=== PATIENT | male | born 1995 | race Caucasian/White ===

== ENCOUNTER 2018-01-10 23:14 | Emergency (ER) | payer OTHER ==
[~2018-01-10] VITALS: Ht 162.6 cm; Wt 55.0 kg
[2018-01-11 00:19] VITALS: BP 149/79
== END 2018-01-11 00:21 | disposition home or self-care (01) ==
LOC: ER 23:14
DX: F10.129 Alcohol abuse with intoxication, unspecified (principal); F12.10 Cannabis abuse, uncomplicated; V87.7XXA Person injured in collision between other specified motor vehicles (traffic), initial encounter; Y93.89 Activity, other specified; Y92.410 Unspecified street and highway as the place of occurrence of the external cause; Y99.8 Other external cause status; Y90.9 Presence of alcohol in blood, level not specified
CPT/HCPCS: 99283

== ENCOUNTER 2018-12-04 01:10 | Emergency (ER) | payer MEDICAID ==
[~2018-12-04] VITALS: Ht 160 cm; Wt 6.4 kg
[2018-12-04 01:18] VITALS: BP 139/85
[2018-12-04] MEDS ORDERED: ibuprofen tablet 400 MG TABLET PO ONE (01:30)
[2018-12-04] MEDS ORDERED: cephalexin 250mg capsule PO ONE (01:30)
[2018-12-04] MEDS ORDERED: IBUP-1986 PO (01:31)
[2018-12-04] MEDS ORDERED: CEPH500C5 PO (01:31)
== END 2018-12-04 01:38 | disposition home or self-care (01) ==
LOC: ER 01:11
DX: L03.011 Cellulitis of right finger (principal); F12.90 Cannabis use, unspecified, uncomplicated; Z79.899 Other long term (current) drug therapy
CPT/HCPCS: 29130; 99283

== ENCOUNTER 2025-07-22 06:20 | Emergency (ER) | payer MEDICAID ==
[~2025-07-22] VITALS: Ht 165.1 cm; Wt 68.2 kg
[~2025-07-22 06:20] MED LIST: IBUP-1986 PO
[2025-07-22 06:24] VITALS: BP 131/67
[2025-07-22] MEDS ORDERED: NAPR-1166 PO (07:00)
[2025-07-22] MEDS ORDERED: HYDR-3965 PO (07:00)
[2025-07-22] MEDS ORDERED: ONDA-243 PO (07:00)
[2025-07-22] MEDS ORDERED: NALO4SPR BOTHNARES (07:00)
[2025-07-22] MEDS ORDERED: SULF1TAB49 PO (07:00)
[2025-07-22] MEDS ORDERED: CEPH-585 PO (07:00)
--- NOTE | 2025-07-22 07:05 | Physician Documentation ---
History of Present Illness ~ General Chief Complaint: Buttock Pain Stated Complaint: LUMP ON TAILBONE X 2 DAYS Time Seen by MD: 06:54 Primary Medical Doctor: none History of Present Illness Initial Comments This is a 29-year-old gentleman who presents for evaluation of painful area the tailbone. No obvious trigger provocation. Never experienced this in the past. Very painful to sit. Did not attempt to treat it with the anything other than ibuprofen and Tylenol without much success. Denies any other symptoms. No concern for tobacco, alcohol or illicit substances use Medication Reconciliation Allergies: Coded Allergies: No Known Allergies (Unverified , 07/22/25) Scheduled Cephalexin*Monohydrate* (Keflex*), 1 CAP PO Q6H Ibuprofen (Ibuprofen), 1 TAB PO Q8H Naloxone HCl (Narcan), 1 SPRAYS BOTHNARES ONCE Naproxen (Naproxen), 1 TAB PO Q12H Sulfamethoxazole/Trimethoprim (Bactrim Ds Tablet), 1 TAB PO Q12H Scheduled PRN Hydrocodone Bit/Acetaminophen 5/325 MG (Maybee 5/325 MG), 1 TAB PO Q6H PRN for pain ONDANSETRON ODT 4mg tablet (Ondansetron Odt), 1 TAB PO Q6H PRN PRN for nausea/vomiting Past Medical History Past Medical History: No Pertinent History Past Surgical History: noncontributory Alcohol Use: Heavy Drug Use: marijuana Lives In: Home Review of Systems ROS 10 point review of systems was performed and unless noted above in HPI is negative for acute process/complaint. Physical Exam Physical Exam Vital Signs: Temperature: 97.5, Source: Temporal, Heart Rate: 89, Respiratory Rate: 19, BP: 131/67, Pulse Oximetry: 99, Weight: 68.200 Oxygen Flow Rate: 0 Physical Exam Physical examination: GENERAL: Awake, alert, oriented, GCS 15, no apparent distress, non-toxic appe aring, answers questions, follows commands appropriately. Examined in bed 16. HEENT: Atraumatic, normocephalic, pupils equal, extraocular muscles intact Active gross movements, sclerae anicteric, mucus membranes moist, no stridor. NECK: Midline, no JVD CARDIOVASCULAR: Good skin perfusion without evidence of pallor, mottling. PULMONARY: Nonlabored, symmetric chest rise, no audible wheezing, no accessory muscle use, no respiratory distress, speaking in full sentences. GASTROINTESTINAL: Not distended. NEUROLOGIC: Lucid with normal mental status. Normal facial symmetry. Moves all extremities symmetrically and with purpose. No truncal ataxia. Speech is fluid without evidence of dysarthria or aphasia, no focal deficits appreciated. EXTREMITIES: Acute deformities Skin: warm, dry PSYCHIATRIC: Normal affect, normal insight, normal concentration. Focused exam: [Buttock exam was performed in the presence of DANTE Leung, as a patrol community service officer. The patient has 2 x 1.5 cm area of erythema in his gluteal cleft, tender to palpation reproducing chief complaint. Some calor noted. No obvious large area of fluctuance. No obvious drainable abscess. No evidence of perirectal abscess.] Progress Results/Orders Results/Orders Vital Signs 07/22/25 06:24 Temp 97.5 Pulse 89 Resp 19 B/P (MAP) 131/67 Pulse Ox 99 O2 Flow Rate 0 Medical Decision Making Additional information obtaine: N/A Findings Facility Status: [facility] H[facility], [facility] The plan was discussed with the patient, who demonstrates clear understanding of the plan and is in agreement with the plan unless otherwise noted in the chart. All questions have been answered, all concerns were addressed unless otherwise documented. I was available throughout their ED stay for frequent reassessment and question s. Differential Diagnoses (considered and possible or likely): [Buttock cellulitis, early pilonidal cyst, unlikely perianal or perirectal abscess, no evidence of gangrene/Ophelia's] ??Differential Diagnoses (considered and unlikely, not requiring evaluation currently): [No evidence of traumatic injury] [facility] Data Please see [facility] for the following: Independent Historians and external Records Review. Historian: [Patient] Independent Historians: ?[None] Medication Management: [Reviewed medication list] Social History and determinants: [Reviewed] Please see the body of the note for the following: Any independent interpretations of ECG, imaging studies. All vitals signs/haemodynamics, ordered tests were independently reviewed and interpreted by myself. Nursing triage complaint and vitals reviewed, additional nursing notes were reviewed as available and I agree unless otherwise noted or documented in contradiction in the chart Vital Signs: Independently reviewed Labs: Independently interpreted Imaging: Independently interpreted Old Medical Records: Independently reviewed, see [facility] for relevant summary and information Additionally notably showing: [Hemodynamically stable] Tests considered but not ordered include: [Hematologic workup and imaging has been considered but does not appear to be necessary given clinical nature of diagnosis] Social Determinants of Health Impact: Patient was evaluated in [facility], or [facility] [place] healthcare due to below par ratio of patient to medical providers. [] Comorbid Conditions Impacting Present Evaluation and Care/Treatment: [None reported with the patient] Management Discussions with other Healthcare Providers: [None] Treatment and Disposition Medication Management (Given or considered): []. See EMR for details Consideration for Hospitalization/Escalation/Deescalation of Care: Admission for observation has been considered, [however the patient is able to tolerate p.o., their symptoms are controlled, they are able to rely on oral medications, and their chief complaint/diagnosis can be managed on outpatient basis.] ?ED Course:?[No clinical deterioration. The area is very small, there is nothing currently to drain with the I and D.] ?Shared decision making:?[Patient is hemodynamically stable for discharge home with follow with their primary care provider. [ ] Specific and cautious return precautions provided and discussed with full understanding. Any incidental findings were also discussed and follow up recommendations given. [] All questions answered. Patient/family were able to verbalize back return precautions. Patient/family agree to plan. Copies of imaging and laboratory studies were provided.] Code status:?FULL Please see the full Electronic Medical Record for full details of nursing documentation, medications list, other records of complete past medical history and conditions, vital signs, laboratory studies, and any radiologic study interpretations by radiologists. Portions of this note were completed using [employer] dictation software and as a result there may exist minor errors in spelling. I have reviewed elements of past family and social history and agree as included in note. Differential Diagnosis See body of main note for differential diagnosis Departure Disposition: HOME / SELF CARE / HOMELESS Impression: Primary Impression: Cellulitis of buttock Condition: Stable Referrals: DEYVI SHERMAN MD 2-4 days Follow-up with the general surgeon as pilonidal cysts have high rate of recurrence and likely will require surgical removal. Prescriptions Sulfamethoxazole/Trimethoprim (Bactrim Ds Tablet) 800 Mg-160 Mg Tablet 1 TAB PO Q12H for 10 Days, #20 TAB Prov: ATILIO RIVERS DO 07/22/25 Cephalexin*Monohydrate* (Keflex*) 500 Mg Capsule 1 CAP PO Q6H for 10 Days, #40 CAP Prov: ATILIO RIVERS DO 07/22/25 ONDANSETRON ODT 4mg tablet (ONDANSETRON ODT) 4 Mg Tab.rapdis 1 TAB PO Q6H PRN PRN for nausea/vomiting for 4 Days, #16 TAB 0 Refills Prov: ATILIO RIVERS DO 07/22/25 Naloxone HCl (Narcan) 4 Mg/Actuation [place] 1 SPRAYS BOTHNARES ONCE for 14 Days, #1 EA 0 Refills Prov: ATILIO RIVERS DO 07/22/25 Hydrocodone Bit/Acetaminophen 5/325 MG (Maybee 5/325 MG) 5 Mg/325 Mg Tablet 1 TAB PO Q6H PRN for pain for 7 Days, #28 TAB Prov: ATILIO RIVERS DO 07/22/25 Naproxen (Naproxen) 375 Mg Tablet 1 TAB PO Q12H for pain for 30 Days, #60 TAB 0 Refills with food Prov: ATILIO RIVERS DO 07/22/25 Education Educated: Patient Educated regarding: diagnosis, treatment, prognosis, need for follow up Signature Scribe Signature: No scribe Attestation: Date: Jul 22, 2025 Time: 07:03 This note accurately reflects clinical decisions, work performed by myself, DO SIVLESTRE Brown NICHOLAS M DO Jul 22, 2025 07:05
[2025-07-22 07:40] VITALS: PULSE 77; RESP 14; TEMP 98.6; O2SAT 98
== END 2025-07-22 07:44 | disposition home or self-care (01) ==
LOC: ER 06:21
DX: L03.317 Cellulitis of buttock (principal); F12.90 Cannabis use, unspecified, uncomplicated; F10.90 Alcohol use, unspecified, uncomplicated; Z79.899 Other long term (current) drug therapy; Y90.9 Presence of alcohol in blood, level not specified
CPT/HCPCS: 99283